=== PATIENT | female | born 1950 | race Caucasian/White ===

== ENCOUNTER 2017-12-03 14:37 | Inpatient (IN) | payer MEDICARE ==
[~2017-12-03] VITALS: Ht 167.6 cm; Wt 90.9 kg
--- NOTE | ~2017-12-03 | PN ---
PATIENT:KODI JORGENSEN MEDICAL RECORD: [id number] LOCATION:[facility]112 ADMISSION DATE: 12/03/17 PROGRESS NOTE DATE OF SERVICE: 12/21/2017 SUBJECTIVE: No new complaint. OBJECTIVE: The patient continues to do well. She is tolerating medications without difficulty. On exam, mood is euthymic. Affect is bland. Speech is rather terse today. Content of thought still shows moderate delusional ideation. Sensorium shows no change. ASSESSMENT: No change in diagnosis. PLAN: 1. Continue all current medications. 2. Continue supportive therapy. TRANSINT:[id number] Voice Confirmation ID: [id number] DOCUMENT ID: [id number] COREY SCOTT III, MD at 1045 CC: [id number] DICTATION DATE: 12/21/17 1141 HEAD OPERATOR SULFIDE: 12/21/17 1340 ADM IN [place] [id number] [place] [id number]
--- NOTE | ~2017-12-03 | PN ---
PATIENT:KODI JORGENSEN MEDICAL RECORD: [id number] LOCATION:[facility]ETTA Vazquez ADMISSION DATE: 12/03/17 PROGRESS NOTE DATE OF SERVICE: 12/13/2017 SUBJECTIVE: The patient does not give a coherent complaint. OBJECTIVE: The patient has become acutely manic. She is exhibiting paranoid delusional ideation and rambling speech and hyperactivity. She is intrusive and is difficult to redirect. The patient refused medications both last night and this morning. PHYSICAL EXAMINATION: On exam, mood is elevated. Affect very expansive. Speech is rambling and very difficult and hard to comprehend. Content of thought as noted above. Sensorium unchanged. ASSESSMENT: No change in diagnosis. PLAN: 1. Discontinue Geodon and Seroquel and begin Zyprexa Zydis 5 mg b.i.d. 2. Get valproic acid level in the morning. 3. Continue other medications. TRANSINT:[id number] Voice Confirmation ID: [id number] DOCUMENT ID: [id number] COREY SCOTT III, MD at 1054 CC: [id number] DICTATION DATE: 12/13/17 1209 GAMBLING COUNSELLOR: 12/13/17 1235 ADM IN [facility] [address] [place] [id number]
--- NOTE | ~2017-12-03 | PN ---
PATIENT:KODI JORGENSEN MEDICAL RECORD: [id number] LOCATION:[facility]ETTA PriceJaime ADMISSION DATE: 12/03/17 PROGRESS NOTE DATE OF SERVICE: 12/10/2017 SUBJECTIVE: The patient's case was discussed with staff. She has no new complaint. OBJECTIVE: The patient is in good behavioral control with limited insight about her condition. She tolerates her medicines well. ASSESSMENT: No change in diagnoses. PLAN: Current medicines and therapies have been reviewed, both will be maintained. Long-term prognosis is guarded. TRANSINT:[id number] Voice Confirmation ID: [id number] DOCUMENT ID: [id number] JOSE FRANCISCO GOTTLIEB MD at 1349 CC: [id number] DICTATION DATE: 12/10/17 1240 MILLWRIGHT INSTRUCTOR: 12/10/172035 ADM IN [place] [address] [place] [address]
--- NOTE | ~2017-12-03 | PN ---
PATIENT:KODI JORGENSEN MEDICAL RECORD: [id number] LOCATION:[facility]EN[facility]ETTA Vazquez ADMISSION DATE: 12/03/17 PROGRESS NOTE DATE OF SERVICE: 12/20/2017 SUBJECTIVE: No new complaint. OBJECTIVE: The patient is now taking medication without any opposition at all. She is showing considerable improvement in her acute astrid, tolerating medicine well. On exam, mood is euthymic, affect is pleasant. Speech continues to be somewhat tangential and poorly articulated. Content of thought still is positive for moderate delusional ideation. Sensorium does not show change. ASSESSMENT: No change in diagnosis. PLAN: 1. Maintain current medications. 2. Continue supportive therapy. TRANSINT:[id number] Voice Confirmation ID: [id number] DOCUMENT ID: [id number] COREY SCOTT III, MD at 1013 CC: [id number] DICTATION DATE: 12/20/17 1101 DIRECTOR OF SAFETY: 12/20/17 1241 ADM IN [place] [id number] [place] [address]
--- NOTE | ~2017-12-03 | PN ---
PATIENT:KODI JORGENSEN MEDICAL RECORD: [id number] LOCATION:[facility] Price112 ADMISSION DATE: 12/03/17 PROGRESS NOTE DATE OF SERVICE: 12/19/2017 SUBJECTIVE: No new complaint. OBJECTIVE: The patient is overall calmer. She is taking her medications now as prescribed. On exam, mood for the most part is euthymic. Affect is bland. Speech is still difficult to understand because of poor articulation. Content of thought continues to exhibit some delusional ideation. Sensorium shows no change. ASSESSMENT: No change in diagnosis. PLAN: 1. Continue all current medications. 2. Continue supportive therapy. TRANSINT:[id number] Voice Confirmation ID: [id number] DOCUMENT ID: [id number] COREY SCOTT III, MD at 1002 CC: [id number] DICTATION DATE: 12/19/17 1118 RECRUITMENT INTERN: 12/19/17 1357 ADM IN [facility] [address] [place] [address]
--- NOTE | ~2017-12-03 | PN ---
PATIENT:KODI JORGENSEN MEDICAL RECORD: [id number] LOCATION:[facility] Price112 ADMISSION DATE: 12/03/17 PROGRESS NOTE DATE OF SERVICE: 12/12/2017 SUBJECTIVE: No new complaint. OBJECTIVE: The patient has done very well over the weekend. No aggressive behaviors noted. Speech is more moderated now. Content of thought is unchanged. Sensorium unchanged. ASSESSMENT: No change in diagnosis. PLAN: 1. Continue all current medications. 2. Continue supportive therapy. TRANSINT:[id number] Voice Confirmation ID: [id number] DOCUMENT ID: [id number] COREY SCOTT III, MD at 1053 CC: [id number] DICTATION DATE: 12/12/17 1218 SUPERINTENDENT MENAGERIE: 12/12/17 1225 ADM IN [place] [id number] [place] [address]
--- NOTE | ~2017-12-03 | PN ---
PATIENT:KODI JORGENSEN MEDICAL RECORD: [id number] LOCATION:HENRIETTA Price112 ADMISSION DATE: 12/03/17 PROGRESS NOTE DATE OF SERVICE: 12/07/2017 SUBJECTIVE: No new complaint. OBJECTIVE: The patient continues to be fairly cooperative. No agitation or aggressiveness noted. On exam, mood is euthymic. Affect is childlike and somewhat peculiar. Speech is garbled. Content of thought positive for delusional ideation. Sensorium shows no change. ASSESSMENT: No change in diagnosis. PLAN: 1. Continue current medications. 2. Continue supportive therapy. TRANSINT:[id number] Voice Confirmation ID: [id number] DOCUMENT ID: [id number] COREY SCOTT III, MD at 0452 CC: [id number] DICTATION DATE: 12/07/17 1140 GRANULATOR: 12/07/17 1449 ADM IN [facility] [address] [place] [id number]
--- NOTE | ~2017-12-03 | PN ---
PATIENT:KODI JORGENSEN MEDICAL RECORD: [id number] LOCATION:HENRIETTA Vazquez ADMISSION DATE: 12/03/17 PROGRESS NOTE DATE OF SERVICE: 12/06/2017 SUBJECTIVE: No new complaint. OBJECTIVE: The patient continues to give evidence of delusional ideation, particularly somatic delusions. She has been overall cooperative. On exam, mood is more or less euthymic. Affect is very shallow and childlike. Speech is disjointed and poorly articulated. Content of thought shows evidence of somatic delusions. Sensorium shows no change. ASSESSMENT: No change in diagnosis. PLAN: 1. Maintain current medication. 2. Continue supportive therapy. TRANSINT:[id number] Voice Confirmation ID: [id number] DOCUMENT ID: [id number] COREY SCOTT III, MD at 1037 CC: [id number] DICTATION DATE: 12/06/17 1138 GAS METER REPAIR SUPERVISOR: 12/06/17 1231 ADM IN [facility] [address] [place] [address]
--- NOTE | ~2017-12-03 | PN ---
PATIENT:KODI JORGENSEN MEDICAL RECORD: [id number] LOCATION:HENRIETTA Vazquez ADMISSION DATE: 12/03/17 PROGRESS NOTE DATE OF SERVICE: 12/15/2017 SUBJECTIVE: The patient again states that she is "in rehabilitation" and thinks she does not have to take medication. OBJECTIVE: The patient was again corrected and told that she is in inpatient treatment and that it is necessary for her to comply with medication in order for her to be discharged from the hospital more quickly. The patient apparently has been less intrusive and labile, but still appears to be attending to auditory hallucinations and continues to make oblique and bizarre statements. On exam, mood is somewhat elevated. Affect is rather expansive. Speech is tangential. Content of thought is positive for hallucinations and delusional ideation. Sensorium shows no change. ASSESSMENT: No change in diagnosis. PLAN: 1. We will maintain current medications for now. 2. Check valproic acid level in the morning. 3. Continue supportive therapy. TRANSINT:[id number] Voice Confirmation ID: [id number] DOCUMENT ID: [id number] COREY SCOTT III, MD at 1506 CC: [id number] DICTATION DATE: 12/15/17 1135 ADMITTING REPRESENTATIVE: 12/15/17 1150 ADM IN [place] [id number] [place] [address]
--- NOTE | ~2017-12-03 | PSY ---
PATIENT NAME:KODI JORGENSEN MEDICAL RECORD: [id number] : 50 LOCATION:HENRIETTA Vazquez8 ADMISSION DATE: 12/03/17 ACCOUNT: [id number] PSYCHIATRIC EVALUATION DATE OF EVALUATION: 12/05/17 IDENTIFYING DATA: First custodial admission for this 67-year-old single white female. HISTORY OF PRESENT ILLNESS: This patient had been living at the [facility] recently. She had been exhibiting worsening behavior and agitation. She had been noncompliant with treatment and with medication and had been exhibiting paranoid ideation regarding people taking her things. She also reported to be experiencing hallucinations and paranoid delusions. Because of worsening behavior, the patient was admitted. The patient evidently has a past history of schizophrenia that dates back considerable period of time. Details of previous treatment; however, are not available currently. PAST MEDICAL HISTORY: The patient has had a recent urinary tract infection and has been started on Macrobid for this. She also has a past history of hypothyroidism. She indicates that she has some type of spinal injury, it is not known whether she has had surgery. MEDICATION AT THE TIME OF ADMISSION: Included aspirin, levothyroxine, Remeron, Seroquel, Depakene, and Geodon. ALLERGIES: Listed as SULFA, DOXYCYCLINE, MORPHINE, and TETANUS TOXOID. FAMILY HISTORY: Noncontributory. SOCIAL HISTORY: The patient has a sister who is involved in her care. She does not have substance abuse issues. She has never . MENTAL STATUS: On interview, the patient is pleasant and cooperative. She orients well to the examiner. Her speech is very disjointed and very poorly articulated and is quite difficult to follow. Mood is for the most part euthymic. Affect is somewhat constricted. Content of thought, reportedly positive for paranoid delusional ideation and possibly hallucinations. On sensorium testing, the patient is oriented to person plus the fact that she is in [facility]. She is not clear about the date. Intermediate and short-term recall seemed to show deficits. DIAGNOSTIC IMPRESSION: AXIS I: Schizophrenia, paranoid type. AXIS II: No diagnosis. AXIS III: Hypothyroidism, recent urinary tract infection. AXIS IV: Moderate. AXIS V: 36. PLAN: 1. The patient is admitted for further medical and psychiatric workup. 2. Daily supportive therapy. 3. Work with family and referring agency regarding aftercare. TRANSINT:[id number] Voice Confirmation ID: [id number] DOCUMENT ID: [id number] COREY SCOTT III, MD at 1049 CC: [id number] DICTATION DATE: 12/05/17 1134 MILL PLATFORM SUPERVISOR: 12/05/17 1325 ADM IN [facility] [address] [place] [address]
--- NOTE | ~2017-12-03 | PN ---
PATIENT:KODI JORGENSEN MEDICAL RECORD: [id number] LOCATION:HENRIETTA Price112 ADMISSION DATE: 12/03/17 PROGRESS NOTE DATE OF SERVICE: 12/09/2017 SUBJECTIVE: The patient's case was discussed with staff. She has no new complaint. OBJECTIVE: The patient is in good behavioral control with limited insight about her condition. She tolerates her medicines reasonably well. ASSESSMENT: No change in diagnoses. PLAN: Supportive and educational interventions were made. [facility] prognosis is guarded. TRANSINT:[id number] Voice Confirmation ID: [id number] DOCUMENT ID: [id number] JOSE FRANCISCO GOTTLIEB MD at 1215 CC: [id number] DICTATION DATE: 12/09/17 1455 DIRECTOR BUSINESS SYSTEMS: 12/09/172006 ADM IN [facility] [address] [place] [address]
--- NOTE | ~2017-12-03 | PN ---
PATIENT:KODI JORGENSEN MEDICAL RECORD: [id number] LOCATION:HENRIETTA Vazquez ADMISSION DATE: 12/03/17 PROGRESS NOTE DATE OF SERVICE: 12/08/2017 SUBJECTIVE: No new complaint. OBJECTIVE: The patient continues to be fairly cooperative. Staff have not noted aggressiveness or assaultiveness. On exam, the patient's speech remains rambling and nonfocused. Affect is peculiar and childlike. Motor activity is somewhat restless. Sensorium is unchanged. ASSESSMENT: No change in diagnosis. PLAN: 1. Maintain current medication. 2. Continue supportive therapy. TRANSINT:[id number] Voice Confirmation ID: [id number] DOCUMENT ID: [id number] COREY SCOTT III, MD at 1100 CC: [id number] DICTATION DATE: 12/08/17 1147 TWISTHAND: 12/08/17 1210 ADM IN [place] [id number] [place] [id number]
--- NOTE | ~2017-12-03 | PN ---
PATIENT:KODI JORGENSEN MEDICAL RECORD: [id number] LOCATION:HENRIETTA Price112 ADMISSION DATE: 12/03/17 PROGRESS NOTE DATE OF SERVICE: 12/22/2017 SUBJECTIVE: No new complaint. OBJECTIVE: The patient continues to do quite well. She is tolerating current medications. Arrangements will be made for transfer back to [facility] tomorrow. On exam, mood euthymic. Affect still somewhat peculiar and shallow. Speech is a bit tangential. Content of thought unchanged. Sensorium unchanged. ASSESSMENT: No change in diagnosis. PLAN: 1. Continue current medication. 2. Continue supportive therapy. TRANSINT:[id number] Voice Confirmation ID: [id number] DOCUMENT ID: [id number] COREY SCOTT III, MD at 0510 CC: [id number] DICTATION DATE: 12/22/17 1154 INSPECTOR PENETRANT: 12/22/17 1335 ADM IN [place] [id number] [place] [address]
--- NOTE | ~2017-12-03 | DS ---
PATIENT:KODI JORGENSEN :50 MEDICAL RECORD: [id number] DISCHARGE SUMMARY ADMISSION DATE: 12/03/17 DISCHARGE DATE: 12/23/17 DATE OF ADMISSION: 12/03/2017 DATE OF DISCHARGE: 12/23/2017 HISTORY OF PRESENT ILLNESS: A 67-year-old white female who had previously been a resident at the [facility]. She had been showing worsening agitation and combative behavior. She had been noncompliant with treatment and was exhibiting auditory hallucinations and paranoid delusional ideation. For further details, please refer to the previously dictated history. COURSE IN THE HOSPITAL: The patient was seen in consultation by Dr. Delgadillo. He noted the presence of hypothyroidism, recent urinary tract infection, hypertension and osteoarthritis. The patient continued to show considerable agitation. Changes were made in her medication. She was given larger dose of Depakene, dose was increased to 750 mg twice a day. She was also taken off of her previous neuroleptics and started on Zyprexa Zydis 5 mg twice a day. She was maintained on a previous dose of Remeron 15 mg at bedtime. Aside from this, she was kept on a previous p.r.n. dose of [place], Synthroid 112 mcg daily, aspirin 81 mg daily, Zestril 20 mg daily, Neurontin 100 mg t.i.d. The patient did show an acute escalation of astrid and psychosis several days into the hospitalization. This occurred during transition of neuroleptics to Zyprexa. However, once the dose was stabilized and after increasing the dose of Depakene, the patient calmed considerably. By the time of discharge, she was felt to be in stable mood and was for the most part euthymic. FINAL DIAGNOSES: AXIS I: Schizoaffective disorder, bipolar type. AXIS II: No diagnosis. AXIS III: Hypothyroidism, recent urinary tract infection, hypertension. AXIS IV: Moderate. AXIS V: 40. PLAN: 1. The patient is discharged on current medications. 2. Diet and activities as tolerated. 3. Follow up through primary care physician [facility] to the [facility]. TRANSINT:[id number] Voice Confirmation ID: [id number] DOCUMENT ID: [id number] COREY SCOTT III, MD at 0727 CC: [id number] DICTATION DATE: 12/23/17 1051 HAIRSPRING ASSEMBLER: 12/23/17 1428 DIS IN 12/23/17 [facility] [address] [place] [id number]
--- NOTE | ~2017-12-03 | PN ---
PATIENT:KODI JORGENSEN MEDICAL RECORD: [id number] LOCATION:HENRIETTA Vazquez ADMISSION DATE: 12/03/17 PROGRESS NOTE DATE OF SERVICE: 12/14/2017 SUBJECTIVE: The patient states that she used to be in "rehab." The remainder of her statement was not understandable. On exam, the patient has indeed maintained an elevated mood. She is manic with intrusiveness, flight of ideas, tangentiality, and very brittle affect. She has been started on Zyprexa Zydis 5 mg twice a day. Staff was able to administer the medicine this morning when given with food. The patient has been verbally aggressive towards certain staff members. On exam, mood is elevated. Affect is very expansive. Speech is rapid, pressured, tangential and very poorly articulated. Content of thought appears to be positive for grandiose ideation as well as paranoid delusional ideation. Sensorium shows no improvement. ASSESSMENT: No change in diagnosis. PLAN: 1. We will continue with current medication plan with the exception of perhaps adjusting her dose of valproic acid as her blood level this morning was 13.7. However, it must be kept in mind the patient has been refusing medication frequently. 2. We will continue supportive therapy. TRANSINT:[id number] Voice Confirmation ID: [id number] DOCUMENT ID: [id number] COREY SCOTT III, MD at 0716 CC: [id number] DICTATION DATE: 12/14/17 1126 FRONT DESK ASSISTANT: 12/14/17 1319 ADM IN [place] [id number] [place] [address]
--- NOTE | ~2017-12-03 | PN ---
PATIENT:KODI JORGENSEN MEDICAL RECORD: [id number] LOCATION:HENRIETTA PriceJaime ADMISSION DATE: 12/03/17 PROGRESS NOTE DATE OF SERVICE: 12/16/2017 SUBJECTIVE: The patient's case was discussed with staff. She has no new complaint. OBJECTIVE: The patient is in good behavioral control. She is withdrawn and has evidence of a significant thinking disorder. Her long-term prognosis is guarded. Supportive and educational interventions were made. TRANSINT:[id number] Voice Confirmation ID: [id number] DOCUMENT ID: [id number] JOSE FRANCISCO GOTTLIEB MD at 1338 CC: [id number] DICTATION DATE: 12/16/17 1318 LICENSED NURSE PRACTITIONER: 12/16/17 1334 ADM IN [place] [id number] [place] [address]
--- NOTE | ~2017-12-03 | PN ---
PATIENT:KODI JORGENSEN MEDICAL RECORD: [id number] LOCATION:HENRIETTA Vazquez ADMISSION DATE: 12/03/17 PROGRESS NOTE DATE OF SERVICE: 12/17/2017 SUBJECTIVE: The patient states "it is not legal unless you have an technical systems architect for your house." OBJECTIVE: The patient continues to exhibit nonsensical speech. Speech is very rapid and pressured at intervals, but other times the patient appears almost mute. On exam, the patient's mood is slightly elevated. Affect is very shallow and child like. Content of thought exhibits delusional ideation and apparent auditory hallucinations. Sensorium shows no change. ASSESSMENT: No change in diagnosis. PLAN: 1. Continue current medications. 2. Continue supportive therapy. TRANSINT:[id number] Voice Confirmation ID: [id number] DOCUMENT ID: [id number] COREY SCOTT III, MD at 1830 CC: [id number] DICTATION DATE: 12/17/17 1146 SUPPORT SERVICES REP: 12/17/17 1606 ADM IN [facility] [address] [place] [address]
[2017-12-03 15:20] LABS: UDS - AMPHET NEGATIVE QUAL (NEGATIVE); UDS - BARB NEGATIVE QUAL (NEGATIVE); UDS - BENZO NEGATIVE QUAL (NEGATIVE); UDS - COCAINE NEGATIVE QUAL (NEGATIVE); UDS - OPIATE NEGATIVE QUAL (NEGATIVE); UDS - PCP NEGATIVE QUAL (NEGATIVE); UDS - THC NEGATIVE QUAL (NEGATIVE)
[2017-12-03 15:22] LABS: BASOPHILS 0.1 % (0-2); EOSINOPHILS 3.9 % (0-7); HEMATOCRIT 41.2 % (36.0-48.0); HEMOGLOBIN 13.9 g/dL (12-16); IMMATURE GRANULOCYTES 0.1 % (0-5); LYMPHOCYTES 34.1 % (15-50); MCHC 33.7 g/dL (31.0-37.0); MCV 94.7 fL (80.0-100.0); MEAN PLATELET VOLUME 9.4 fL (7.4-10.4); MONOCYTES 7.9 % (2-11); NEUTROPHILS 53.9 % (40-80); PLATELET COUNT 308 10x3/uL (130-400); RBC 4.35 10x6/uL (4.00-5.40); RDW 12.6 % (11.5-14.5); WBC 6.7 10x3/uL (4.8-10.8)
[2017-12-03 15:36] LABS: ALBUMIN 3.4 g/dL (3.4-5.0); ANION GAP 12.1 mmol/L (8-16); BILIRUBIN - TOTAL 0.27 mg/dL (0.2-1.3); CALCIUM 9.2 mg/dL (8.5-10.1); CARBON DIOXIDE 31.1 mmol/L (21.0-32.0); POTASSIUM - SERUM 4.2 mmol/L (3.5-5.1); PROTEIN - SERUM 6.8 g/dL (6.4-8.2)
[2017-12-03 15:41] LABS: APPEARANCE HAZY (CLEAR); BILIRUBIN NEGATIVE (NEGATIVE); COLOR YELLOW (YELLOW); GLUCOSE NEGATIVE (NEGATIVE); KETONE NEGATIVE (NEGATIVE); NITRITE NEGATIVE (NEGATIVE); PROTEIN NEGATIVE (NEGATIVE); SPECIFIC GRAVITY 1.015 (1.005-1.020); UROBILINOGEN NORMAL (NORMAL)
[2017-12-03 15:43] LABS: BACTERIA MODERATE /hpf (NONE SEEN); EPITHELIAL CELLS OCC /hpf (0-5); MUCUS <1+ /lpf (NONE SEEN); RED CELLS - URINE 0-5 /hpf (0-5)
[2017-12-03 15:47] LABS: CREATINE KINASE 107 UL (21-215); MAGNESIUM - SERUM 2.9 mg/dL (1.8-2.4)
[2017-12-03 15:48] LABS: TROPONIN-I < 0.017 ng/mL (0.000-0.060)
[2017-12-03] MEDS ORDERED: BAYER CHEWABLE81 MG PO (19:44)
[2017-12-03] MEDS ORDERED: SYNTHROID112 MCG PO (19:45)
[2017-12-03] MEDS ORDERED: REMERON15 MG PO (19:46)
[2017-12-03] MEDS ORDERED: SEROQUEL25 MG PO (19:47)
[2017-12-03] MEDS ORDERED: DEPAKENE 2250 MG/5 M PO (19:48)
[2017-12-03] MEDS ORDERED: GEODON80 MG PO (19:49)
[2017-12-04 02:56] VITALS: BP 112/79; BMI 32.3
[2017-12-04 06:16] LABS: BASOPHILS 0.2 % (0-2); EOSINOPHILS 6.2 % (0-7); HEMOGLOBIN 13.7 g/dL (12-16); IMMATURE GRANULOCYTES 0.2 % (0-5); LYMPHOCYTES 35.7 % (15-50); MCH 31.6 pg (26.0-34.0); MCHC 33.4 g/dL (31.0-37.0); MCV 94.7 fL (80.0-100.0); MEAN PLATELET VOLUME 9.3 fL (7.4-10.4); MONOCYTES 7.9 % (2-11); NEUTROPHILS 49.8 % (40-80); PLATELET COUNT 249 10x3/uL (130-400); RBC 4.33 10x6/uL (4.00-5.40); RDW 12.6 % (11.5-14.5); WBC 4.5 10x3/uL (4.8-10.8)
[2017-12-04 06:51] LABS: HEMOGLOBIN A1C 4.9 % (4.8-6.0)
[2017-12-04 07:00] VITALS: BP 132/92
[2017-12-04 07:18] LABS: ALBUMIN 3.1 g/dL (3.4-5.0); ANION GAP 14.7 mmol/L (8-16); BILIRUBIN - TOTAL 0.34 mg/dL (0.2-1.3); CALCIUM 9.3 mg/dL (8.5-10.1); CARBON DIOXIDE 26.4 mmol/L (21.0-32.0); CREATININE - SERUM 0.9 mg/dL (0.6-1.3); LDL-HDL RATIO 2.6 ratio (1.5-3.5); POTASSIUM - SERUM 4.1 mmol/L (3.5-5.1); PROTEIN - SERUM 6.5 g/dL (6.4-8.2); THYROID STIMULATING HORMONE 1.34 uIU/mL (0.36-3.74)
[2017-12-04 20:10] VITALS: BP 158/92
[2017-12-05 07:00] VITALS: BP 156/99
[2017-12-05 20:06] VITALS: BP 126/84
[2017-12-06 07:26] LABS: RAPID PLASMA REAGIN Non Reactive (Non Reactive)
[2017-12-06 08:17] LABS: FOLATE (FOLIC ACID) - SERUM 19.2 ng/mL (>3.0)
[2017-12-06 08:56] VITALS: BP 131/90
[2017-12-06 09:13] LABS: VITAMIN D 25 HYDROXY 34.9 ng/mL (30.0-100.0)
[2017-12-06 19:44] VITALS: BP 149/77
[2017-12-07 10:46] VITALS: BP 142/82
[2017-12-07 10:55] VITALS: Ht 167.6 cm; Wt 90.9 kg
[2017-12-07 20:41] VITALS: BP 123/80
[2017-12-08 09:31] VITALS: BP 136/76
[2017-12-08 19:30] VITALS: BP 150/82
[2017-12-09 08:30] VITALS: BP 110/059
[2017-12-09 19:53] VITALS: BP 119/83
[2017-12-10 09:11] VITALS: BP 141/81
[2017-12-10 19:30] VITALS: BP 115/66
[2017-12-11 07:00] VITALS: BP 143/69
[2017-12-11 20:10] VITALS: BP 132/62
[2017-12-12 07:00] VITALS: BP 159/90
[2017-12-12 19:46] VITALS: BP 142/83
[2017-12-13 19:36] VITALS: BP 155/103
[2017-12-14 09:47] VITALS: BP 136/76
[2017-12-14 19:05] VITALS: BP 113/67
[2017-12-15 08:30] VITALS: BP 157/103
[2017-12-15 19:30] VITALS: BP 142/89
[2017-12-16 10:40] VITALS: BP 148/78
[2017-12-16 20:15] VITALS: BP 113/070
[2017-12-17 07:43] VITALS: BP 174/098
[2017-12-17 19:30] VITALS: BP 126/74
[2017-12-18 08:30] VITALS: BP 144/084
[2017-12-18 19:30] VITALS: BP 128/78
[2017-12-19 08:46] VITALS: BP 144/92
[2017-12-19 19:54] VITALS: BP 160/77
[2017-12-20 08:00] VITALS: BP 107/53
[2017-12-20 21:23] VITALS: BP 111/89
[2017-12-21 08:01] VITALS: BP 122/77
[2017-12-21 19:30] VITALS: BP 137/75
[2017-12-22 10:00] VITALS: BP 113/73
[2017-12-22] MEDS ORDERED: LISINOPRIL10 MG PO (11:40)
[2017-12-22] MEDS ORDERED: DEPAKENE 2250 MG/5 M PO (11:41)
[2017-12-22] MEDS ORDERED: GABAPENTIN100 MG PO (11:41)
[2017-12-22] MEDS ORDERED: ZYPREXA ZYDI5 MG/TAB PO (11:42)
[2017-12-22 19:43] VITALS: BP 110/54
[2017-12-23 09:52] VITALS: BP 131/69
== END 2017-12-23 13:30 | disposition home or self-care (01) | DRG 885 ==
LOC: D.ER 14:37 → D.PSYCH 17:10
PROVIDERS: Emergency Medicine; Psychiatry & Neurology Psychiatry
DX: F25.0 Schizoaffective disorder, bipolar type (principal); N39.0 Urinary tract infection, site not specified; E03.9 Hypothyroidism, unspecified; I10 Essential (primary) hypertension; M19.90 Unspecified osteoarthritis, unspecified site; R47.1 Dysarthria and anarthria